=== PATIENT | male | born 2000 | race African-American/Black ===

== ENCOUNTER 2020-08-26 12:16 | Inpatient (IN) | payer MEDICAID ==
[~2020-08-26] VITALS: Ht 175.3 cm; Wt 69.9 kg
[2020-08-26] MEDS ORDERED: TUBERCULIN, PURIFIED PROTEIN DERIVATIVE 5 TU/0.1 ML SYRINGE ID ONE (15:15)
[2020-08-26] MEDS ORDERED: MAG HYDROX/AL HYDROX/SIMETH ES 30 ML SUSPENSION UDCUP PO PRN (15:15)
[2020-08-26] MEDS ORDERED: QUEtiapine FUMARATE 100 MG TABLET PO PRN (15:15)
[2020-08-26] MEDS ORDERED: PROMETHAZINE HCL 25 MG TABLET PO PRN (15:15)
[2020-08-26] MEDS ORDERED: ZOLPIDEM TARTRATE 10 MG TABLET PO PRN (15:15)
[2020-08-26] MEDS ORDERED: HydrOXYzine PAMOATE 50 MG CAPSULE PO PRN (15:15)
[2020-08-26] MEDS ORDERED: LOPERAMIDE HCL 2 MG CAPSULE PO PRN (15:15)
[2020-08-26] MEDS ORDERED: LORazepam 2 MG TABLET PO PRN (15:15)
[2020-08-26] MEDS ORDERED: GuaiFENesin/D-METHORPHAN [SUGAR-FREE] 200-20MG/10 ML SYRUP UDCUP PO PRN (15:15)
[2020-08-26] MEDS ORDERED: MAGNESIUM HYDROXIDE SUSPENSION 30 ML UDCUP PO PRN (15:15)
[2020-08-26] MEDS ORDERED: ACETAMINOPHEN 325 MG TABLET PO PRN (15:15)
[2020-08-26] MEDS ORDERED: FLUO20CA36 PO (16:13)
[2020-08-26] MEDS ORDERED: DOCU-275 PO (16:30)
[2020-08-26] MEDS ORDERED: PANT-31 PO (16:30)
[2020-08-26] MEDS ORDERED: BISA-151 PO (16:31)
[2020-08-26] MEDS ORDERED: ACET-2247 PO (16:31)
[2020-08-26] MEDS ORDERED: ALBU8HFA IH (16:31)
[2020-08-26] MEDS ORDERED: BISA10SU11 PR ×2 (16:32→16:33)
[2020-08-26] MEDS ORDERED: HYDR-4723 PO (16:34)
[2020-08-26] MEDS ORDERED: LORA-1001 PO (16:35)
[2020-08-26] MEDS ORDERED: MOM30 PO (16:36)
[2020-08-26] MEDS ORDERED: ZOLP-280 PO (16:36)
[2020-08-26 17:53] VITALS: BP 157/87
[2020-08-26] MEDS: THIAMINE 100 MG TABLET PO SCH (18:34)
[2020-08-26] MEDS ORDERED: OLANZapine 5 MG RAPDIS TABLET PO PRN (19:00)
[2020-08-26] MEDS: OLANZapine 5 MG RAPDIS TABLET PO SCH (20:30)
[2020-08-26] MEDS: MELATONIN 5 MG TABLET PO SCH (20:30)
[2020-08-27 04:17] LABS: APPEARANCE,URINE CLEAR (CLEAR); BILIRUBIN,URINE NEGATIVE (NEGATIVE); GLUCOSE, URINE (UA) NEGATIVE (NEGATIVE); KETONES,URINE NEGATIVE (NEGATIVE); LEUKOCYTE ESTERASE ,URINE NEGATIVE (NEGATIVE); NITRATE,URINE NEGATIVE (NEGATIVE); OCCULT BLOOD,URINE NEGATIVE (NEGATIVE); PROTEIN,URINE NEGATIVE (NEGATIVE); UROBILINOGEN,URINE 0.2 mg/dL (<=1.0)
[2020-08-27 04:22] LABS: AMPHET/METH SCREEN,URINE NEGATIVE (NEGATIVE); BARBITURATE SCREEN, URINE NEGATIVE (NEGATIVE); BENZODIAZEPINES SCREEN,URINE NEGATIVE (NEGATIVE); CANNABINOID SCREEN,URINE POSITIVE (NEGATIVE); COCAINE SCREEN,URINE NEGATIVE (NEGATIVE); METHADONE SCREEN, URINE NEGATIVE (NEGATIVE); OPIATE SCREEN,URINE NEGATIVE (NEGATIVE)
[2020-08-27 04:24] LABS: PHENCYCLIDINE SCREEN,URINE NEGATIVE (NEGATIVE)
[2020-08-27 08:46] VITALS: BP 129/81
[2020-08-27] MEDS: OMEGA-3/DHA/EPA/FISH OIL 1,000 MG CAPSULE PO SCH (09:00)
[2020-08-27] MEDS: FOLIC ACID 1 MG TABLET PO SCH (09:00)
[2020-08-27] MEDS: MULTIVITAMINS WITH MINERALS, THERAPEUTIC TABLET PO SCH (09:00)
[2020-08-27] MEDS: FLUoxetine HCL 20 MG CAPSULE PO SCH (09:00)
[2020-08-27] MEDS: THIAMINE 100 MG TABLET PO SCH ×2 (09:00→16:17)
[2020-08-27] MEDS: NALTREXONE HCL 50 MG TABLET PO SCH (09:00)
[2020-08-27] MEDS ORDERED: ALBUTEROL SULFATE HFA 90 MCG/PUFF 8 GM INHALER IH PRN (11:15)
[2020-08-27 16:04] VITALS: BP 124/74
[2020-08-27] MEDS: DOCUSATE SODIUM 100 MG CAPSULE PO SCH (16:17)
[2020-08-27] MEDS: OLANZapine 5 MG RAPDIS TABLET PO SCH (20:03)
[2020-08-27] MEDS: MELATONIN 5 MG TABLET PO SCH (20:03)
[2020-08-27] MEDS ORDERED: OLANZapine 10 MG RAPDIS TABLET PO SCH (21:00)
[2020-08-27] MEDS ORDERED: OLANZapine 5 MG RAPDIS TABLET PO ONE (21:00)
[2020-08-28 08:00] VITALS: BP 134/75
[2020-08-28] MEDS: DOCUSATE SODIUM 100 MG CAPSULE PO SCH ×2 (09:00→17:00)
[2020-08-28] MEDS: NALTREXONE HCL 50 MG TABLET PO SCH (09:00)
[2020-08-28] MEDS: THIAMINE 100 MG TABLET PO SCH ×2 (09:00→17:00)
[2020-08-28] MEDS: MULTIVITAMINS WITH MINERALS, THERAPEUTIC TABLET PO SCH (09:00)
[2020-08-28] MEDS: FLUoxetine HCL 20 MG CAPSULE PO SCH ×2 (09:00→20:37)
[2020-08-28] MEDS: PANTOPRAZOLE SODIUM 40 MG DR TABLET PO SCH (09:00)
[2020-08-28] MEDS: OMEGA-3/DHA/EPA/FISH OIL 1,000 MG CAPSULE PO SCH (09:00)
[2020-08-28] MEDS: FOLIC ACID 1 MG TABLET PO SCH (09:00)
[2020-08-28 16:37] VITALS: BP 151/77
[2020-08-28] MEDS: MELATONIN 5 MG TABLET PO SCH (20:37)
[2020-08-28] MEDS: OLANZapine 10 MG RAPDIS TABLET PO SCH (20:38)
[2020-08-29 08:16] VITALS: BP 122/70
[2020-08-29] MEDS: OMEGA-3/DHA/EPA/FISH OIL 1,000 MG CAPSULE PO SCH (09:00)
[2020-08-29] MEDS: NALTREXONE HCL 50 MG TABLET PO SCH (09:00)
[2020-08-29] MEDS: MULTIVITAMINS WITH MINERALS, THERAPEUTIC TABLET PO SCH (09:00)
[2020-08-29] MEDS: DOCUSATE SODIUM 100 MG CAPSULE PO SCH ×2 (09:00→16:30)
[2020-08-29] MEDS: FOLIC ACID 1 MG TABLET PO SCH (09:00)
[2020-08-29] MEDS: THIAMINE 100 MG TABLET PO SCH ×2 (09:00→16:30)
[2020-08-29] MEDS: PANTOPRAZOLE SODIUM 40 MG DR TABLET PO SCH (09:00)
[2020-08-29 16:29] VITALS: BP 142/66
[2020-08-29 20:00] VITALS: BP 135/68
[2020-08-29] MEDS: FLUoxetine HCL 20 MG CAPSULE PO SCH (20:51)
[2020-08-29] MEDS: OLANZapine 10 MG RAPDIS TABLET PO SCH (20:52)
[2020-08-29] MEDS: MELATONIN 5 MG TABLET PO SCH (20:52)
[2020-08-30 08:20] VITALS: BP 131/50
[2020-08-30 08:30] VITALS: BP 131/58
[2020-08-30] MEDS: PANTOPRAZOLE SODIUM 40 MG DR TABLET PO SCH (10:40)
[2020-08-30] MEDS: OMEGA-3/DHA/EPA/FISH OIL 1,000 MG CAPSULE PO SCH (10:40)
[2020-08-30] MEDS: MULTIVITAMINS WITH MINERALS, THERAPEUTIC TABLET PO SCH (10:40)
[2020-08-30] MEDS: NALTREXONE HCL 50 MG TABLET PO SCH (10:40)
[2020-08-30] MEDS: THIAMINE 100 MG TABLET PO SCH ×2 (10:40→16:27)
[2020-08-30] MEDS: FOLIC ACID 1 MG TABLET PO SCH (10:40)
[2020-08-30] MEDS: DOCUSATE SODIUM 100 MG CAPSULE PO SCH ×2 (10:44→16:27)
[2020-08-30 20:00] VITALS: BP 128/62
[2020-08-30] MEDS: OLANZapine 10 MG RAPDIS TABLET PO SCH (21:00)
[2020-08-30] MEDS: MELATONIN 5 MG TABLET PO SCH (21:00)
[2020-08-30] MEDS: FLUoxetine HCL 20 MG CAPSULE PO SCH (21:00)
[2020-08-31] MEDS: DOCUSATE SODIUM 100 MG CAPSULE PO SCH ×2 (08:26→16:24)
[2020-08-31] MEDS: OMEGA-3/DHA/EPA/FISH OIL 1,000 MG CAPSULE PO SCH (08:26)
[2020-08-31] MEDS: FOLIC ACID 1 MG TABLET PO SCH (08:26)
[2020-08-31] MEDS: NALTREXONE HCL 50 MG TABLET PO SCH (08:26)
[2020-08-31] MEDS: PANTOPRAZOLE SODIUM 40 MG DR TABLET PO SCH (08:26)
[2020-08-31] MEDS: THIAMINE 100 MG TABLET PO SCH ×2 (08:26→16:24)
[2020-08-31] MEDS: MULTIVITAMINS WITH MINERALS, THERAPEUTIC TABLET PO SCH (08:26)
[2020-08-31 08:57] VITALS: BP 146/75
[2020-08-31 16:27] VITALS: BP 139/75
[2020-08-31] MEDS: FLUoxetine HCL 20 MG CAPSULE PO SCH (20:41)
[2020-08-31] MEDS: MELATONIN 5 MG TABLET PO SCH (20:41)
[2020-08-31] MEDS: OLANZapine 10 MG RAPDIS TABLET PO SCH (20:42)
[2020-09-01 08:11] VITALS: BP 112/62
[2020-09-01] MEDS: OMEGA-3/DHA/EPA/FISH OIL 1,000 MG CAPSULE PO SCH (08:32)
[2020-09-01] MEDS: MULTIVITAMINS WITH MINERALS, THERAPEUTIC TABLET PO SCH (08:32)
[2020-09-01] MEDS: NALTREXONE HCL 50 MG TABLET PO SCH (08:32)
[2020-09-01] MEDS: PANTOPRAZOLE SODIUM 40 MG DR TABLET PO SCH (08:32)
[2020-09-01] MEDS: THIAMINE 100 MG TABLET PO SCH ×2 (08:32→17:02)
[2020-09-01] MEDS: DOCUSATE SODIUM 100 MG CAPSULE PO SCH ×2 (08:32→17:02)
[2020-09-01] MEDS: FOLIC ACID 1 MG TABLET PO SCH (08:32)
[2020-09-01 17:11] VITALS: BP 128/66
[2020-09-01] MEDS ORDERED: OLAN10TA26 PO (18:57)
[2020-09-01] MEDS ORDERED: OMEG-135 PO (18:57)
[2020-09-01] MEDS ORDERED: FLUO20CA36 PO (18:57)
[2020-09-01] MEDS ORDERED: NALT50TA PO (18:57)
[2020-09-01] MEDS ORDERED: MELA5TAB3 PO (18:57)
[2020-09-01] MEDS: FLUoxetine HCL 20 MG CAPSULE PO SCH (20:06)
[2020-09-01] MEDS: MELATONIN 5 MG TABLET PO SCH (20:06)
[2020-09-01] MEDS: OLANZapine 10 MG RAPDIS TABLET PO SCH (20:06)
[2020-09-02 08:00] VITALS: BP 129/74
[2020-09-02] MEDS: DOCUSATE SODIUM 100 MG CAPSULE PO SCH ×2 (09:14→16:15)
[2020-09-02] MEDS: OMEGA-3/DHA/EPA/FISH OIL 1,000 MG CAPSULE PO SCH (09:14)
[2020-09-02] MEDS: MULTIVITAMINS WITH MINERALS, THERAPEUTIC TABLET PO SCH (09:14)
[2020-09-02] MEDS: NALTREXONE HCL 50 MG TABLET PO SCH (09:14)
[2020-09-02] MEDS: THIAMINE 100 MG TABLET PO SCH ×2 (09:14→16:15)
[2020-09-02] MEDS: FOLIC ACID 1 MG TABLET PO SCH (09:14)
[2020-09-02] MEDS: PANTOPRAZOLE SODIUM 40 MG DR TABLET PO SCH (09:14)
[2020-09-02 16:00] VITALS: BP 126/60
[2020-09-02] MEDS: FLUoxetine HCL 20 MG CAPSULE PO SCH (20:18)
[2020-09-02] MEDS: MELATONIN 5 MG TABLET PO SCH (20:18)
[2020-09-02] MEDS: OLANZapine 10 MG RAPDIS TABLET PO SCH (20:19)
[2020-09-03 08:00] VITALS: BP 131/60
[2020-09-03] MEDS: MULTIVITAMINS WITH MINERALS, THERAPEUTIC TABLET PO SCH (08:36)
[2020-09-03] MEDS: DOCUSATE SODIUM 100 MG CAPSULE PO SCH ×2 (08:37→16:19)
[2020-09-03] MEDS: THIAMINE 100 MG TABLET PO SCH ×2 (08:37→16:19)
[2020-09-03] MEDS: NALTREXONE HCL 50 MG TABLET PO SCH (08:37)
[2020-09-03] MEDS: OMEGA-3/DHA/EPA/FISH OIL 1,000 MG CAPSULE PO SCH (08:37)
[2020-09-03] MEDS: PANTOPRAZOLE SODIUM 40 MG DR TABLET PO SCH (08:37)
[2020-09-03] MEDS: FOLIC ACID 1 MG TABLET PO SCH (08:38)
[2020-09-03 16:03] VITALS: BP 153/74
[2020-09-03 20:00] VITALS: BP 139/77
[2020-09-03] MEDS: OLANZapine 10 MG RAPDIS TABLET PO SCH (20:47)
[2020-09-03] MEDS: FLUoxetine HCL 20 MG CAPSULE PO SCH (20:47)
[2020-09-03] MEDS: MELATONIN 5 MG TABLET PO SCH (20:47)
[2020-09-04 08:00] VITALS: BP 109/71
[2020-09-04] MEDS: NALTREXONE HCL 50 MG TABLET PO SCH (08:22)
[2020-09-04] MEDS: THIAMINE 100 MG TABLET PO SCH ×2 (08:22→17:01)
[2020-09-04] MEDS: FOLIC ACID 1 MG TABLET PO SCH (08:22)
[2020-09-04] MEDS: MULTIVITAMINS WITH MINERALS, THERAPEUTIC TABLET PO SCH (08:22)
[2020-09-04] MEDS: DOCUSATE SODIUM 100 MG CAPSULE PO SCH ×2 (08:22→17:01)
[2020-09-04] MEDS: PANTOPRAZOLE SODIUM 40 MG DR TABLET PO SCH (08:23)
[2020-09-04] MEDS: OMEGA-3/DHA/EPA/FISH OIL 1,000 MG CAPSULE PO SCH (08:23)
[2020-09-04 16:21] VITALS: BP 120/81
[2020-09-04] MEDS: MELATONIN 5 MG TABLET PO SCH (20:47)
[2020-09-04] MEDS: FLUoxetine HCL 20 MG CAPSULE PO SCH (20:47)
[2020-09-04] MEDS: OLANZapine 10 MG RAPDIS TABLET PO SCH (20:47)
[2020-09-05 08:50] VITALS: BP 123/73
[2020-09-05] MEDS: DOCUSATE SODIUM 100 MG CAPSULE PO SCH ×2 (09:15→16:15)
[2020-09-05] MEDS: OMEGA-3/DHA/EPA/FISH OIL 1,000 MG CAPSULE PO SCH (09:15)
[2020-09-05] MEDS: NALTREXONE HCL 50 MG TABLET PO SCH (09:16)
[2020-09-05] MEDS: THIAMINE 100 MG TABLET PO SCH (09:16)
[2020-09-05] MEDS: FOLIC ACID 1 MG TABLET PO SCH (09:16)
[2020-09-05] MEDS: PANTOPRAZOLE SODIUM 40 MG DR TABLET PO SCH (09:16)
[2020-09-05] MEDS: MULTIVITAMINS WITH MINERALS, THERAPEUTIC TABLET PO SCH (09:16)
[2020-09-05] MEDS: MELATONIN 5 MG TABLET PO SCH (20:03)
[2020-09-05] MEDS: OLANZapine 10 MG RAPDIS TABLET PO SCH (20:03)
[2020-09-05] MEDS: FLUoxetine HCL 20 MG CAPSULE PO SCH (20:03)
[2020-09-06] MEDS: NALTREXONE HCL 50 MG TABLET PO SCH (09:24)
[2020-09-06] MEDS: MULTIVITAMINS WITH MINERALS, THERAPEUTIC TABLET PO SCH (09:25)
[2020-09-06] MEDS: PANTOPRAZOLE SODIUM 40 MG DR TABLET PO SCH (09:25)
[2020-09-06] MEDS: OMEGA-3/DHA/EPA/FISH OIL 1,000 MG CAPSULE PO SCH (09:25)
[2020-09-06] MEDS: DOCUSATE SODIUM 100 MG CAPSULE PO SCH ×2 (10:00→16:02)
[2020-09-06 16:00] VITALS: BP 129/76
[2020-09-06] MEDS: MELATONIN 5 MG TABLET PO SCH (20:08)
[2020-09-06] MEDS: FLUoxetine HCL 20 MG CAPSULE PO SCH (20:08)
[2020-09-06] MEDS: OLANZapine 10 MG RAPDIS TABLET PO SCH (20:08)
[2020-09-07 09:09] VITALS: BP 145/81
[2020-09-07] MEDS: MULTIVITAMINS WITH MINERALS, THERAPEUTIC TABLET PO SCH (09:40)
[2020-09-07] MEDS: NALTREXONE HCL 50 MG TABLET PO SCH (09:40)
[2020-09-07] MEDS: PANTOPRAZOLE SODIUM 40 MG DR TABLET PO SCH (09:40)
[2020-09-07] MEDS: DOCUSATE SODIUM 100 MG CAPSULE PO SCH ×2 (09:40→16:24)
[2020-09-07] MEDS: OMEGA-3/DHA/EPA/FISH OIL 1,000 MG CAPSULE PO SCH (09:40)
[2020-09-07 16:18] VITALS: BP 146/78
[2020-09-07] MEDS: MELATONIN 5 MG TABLET PO SCH (20:18)
[2020-09-07] MEDS: FLUoxetine HCL 20 MG CAPSULE PO SCH (20:18)
[2020-09-07] MEDS: OLANZapine 10 MG RAPDIS TABLET PO SCH (20:18)
[2020-09-08 09:14] VITALS: BP 109/54
[2020-09-08] MEDS: NALTREXONE HCL 50 MG TABLET PO SCH (09:34)
[2020-09-08] MEDS: OMEGA-3/DHA/EPA/FISH OIL 1,000 MG CAPSULE PO SCH (09:34)
[2020-09-08] MEDS: DOCUSATE SODIUM 100 MG CAPSULE PO SCH ×2 (09:34→16:13)
[2020-09-08] MEDS: MULTIVITAMINS WITH MINERALS, THERAPEUTIC TABLET PO SCH (09:34)
[2020-09-08] MEDS: PANTOPRAZOLE SODIUM 40 MG DR TABLET PO SCH (09:34)
[2020-09-08 16:34] VITALS: BP 124/55
[2020-09-08] MEDS: FLUoxetine HCL 20 MG CAPSULE PO SCH (20:12)
[2020-09-08] MEDS: MELATONIN 5 MG TABLET PO SCH (20:12)
[2020-09-08] MEDS: OLANZapine 10 MG RAPDIS TABLET PO SCH (20:13)
[2020-09-09] MEDS: DOCUSATE SODIUM 100 MG CAPSULE PO SCH ×2 (08:59→17:12)
[2020-09-09] MEDS: OMEGA-3/DHA/EPA/FISH OIL 1,000 MG CAPSULE PO SCH (09:00)
[2020-09-09] MEDS: MULTIVITAMINS WITH MINERALS, THERAPEUTIC TABLET PO SCH (09:01)
[2020-09-09] MEDS: NALTREXONE HCL 50 MG TABLET PO SCH (09:01)
[2020-09-09] MEDS: PANTOPRAZOLE SODIUM 40 MG DR TABLET PO SCH (09:02)
[2020-09-09 16:00] VITALS: BP 124/70
[2020-09-09] MEDS: OLANZapine 10 MG RAPDIS TABLET PO SCH (20:07)
[2020-09-09] MEDS: MELATONIN 5 MG TABLET PO SCH (20:07)
[2020-09-09] MEDS: FLUoxetine HCL 20 MG CAPSULE PO SCH (20:07)
[2020-09-10 08:34] VITALS: BP 115/80
[2020-09-10] MEDS: OMEGA-3/DHA/EPA/FISH OIL 1,000 MG CAPSULE PO SCH (09:42)
[2020-09-10] MEDS: NALTREXONE HCL 50 MG TABLET PO SCH (09:42)
[2020-09-10] MEDS: PANTOPRAZOLE SODIUM 40 MG DR TABLET PO SCH (09:42)
[2020-09-10] MEDS: MULTIVITAMINS WITH MINERALS, THERAPEUTIC TABLET PO SCH (09:42)
[2020-09-10] MEDS: DOCUSATE SODIUM 100 MG CAPSULE PO SCH ×2 (09:42→16:34)
[2020-09-10 16:00] VITALS: BP 132/71
[2020-09-10] MEDS: FLUoxetine HCL 20 MG CAPSULE PO SCH (20:09)
[2020-09-10] MEDS: OLANZapine 10 MG RAPDIS TABLET PO SCH (20:09)
[2020-09-10] MEDS: MELATONIN 5 MG TABLET PO SCH (20:09)
[2020-09-11 08:54] VITALS: BP 122/75
[2020-09-11] MEDS: NALTREXONE HCL 50 MG TABLET PO SCH (09:57)
[2020-09-11] MEDS: PANTOPRAZOLE SODIUM 40 MG DR TABLET PO SCH (09:57)
[2020-09-11] MEDS: OMEGA-3/DHA/EPA/FISH OIL 1,000 MG CAPSULE PO SCH (09:57)
[2020-09-11] MEDS: MULTIVITAMINS WITH MINERALS, THERAPEUTIC TABLET PO SCH (09:57)
[2020-09-11] MEDS: DOCUSATE SODIUM 100 MG CAPSULE PO SCH ×2 (09:57→16:04)
[2020-09-11 16:05] VITALS: BP 143/78
[2020-09-11] MEDS: MELATONIN 5 MG TABLET PO SCH (20:04)
[2020-09-11] MEDS: OLANZapine 10 MG RAPDIS TABLET PO SCH (20:04)
[2020-09-11] MEDS: FLUoxetine HCL 20 MG CAPSULE PO SCH (20:04)
[2020-09-12 09:08] VITALS: BP 113/65
[2020-09-12] MEDS: NALTREXONE HCL 50 MG TABLET PO SCH (10:04)
[2020-09-12] MEDS: OMEGA-3/DHA/EPA/FISH OIL 1,000 MG CAPSULE PO SCH (10:04)
[2020-09-12] MEDS: MULTIVITAMINS WITH MINERALS, THERAPEUTIC TABLET PO SCH (10:04)
[2020-09-12] MEDS: PANTOPRAZOLE SODIUM 40 MG DR TABLET PO SCH (10:06)
[2020-09-12] MEDS: DOCUSATE SODIUM 100 MG CAPSULE PO SCH ×2 (10:06→17:55)
[2020-09-12 14:22] LABS: COVID AG,FIA SOURCE NASOPHARYNGEAL
[2020-09-12 16:26] VITALS: BP 135/76
[2020-09-12] MEDS: OLANZapine 10 MG RAPDIS TABLET PO SCH (21:13)
[2020-09-12] MEDS: FLUoxetine HCL 20 MG CAPSULE PO SCH (21:13)
[2020-09-12] MEDS: MELATONIN 5 MG TABLET PO SCH (21:13)
[2020-09-13 08:15] VITALS: BP 136/73
[2020-09-13] MEDS ORDERED: MULT-1239 PO (08:16)
[2020-09-13] MEDS: DOCUSATE SODIUM 100 MG CAPSULE PO SCH (08:32)
[2020-09-13] MEDS: MULTIVITAMINS WITH MINERALS, THERAPEUTIC TABLET PO SCH (08:32)
[2020-09-13] MEDS: OMEGA-3/DHA/EPA/FISH OIL 1,000 MG CAPSULE PO SCH (08:32)
[2020-09-13] MEDS: PANTOPRAZOLE SODIUM 40 MG DR TABLET PO SCH (08:32)
[2020-09-13] MEDS: NALTREXONE HCL 50 MG TABLET PO SCH (08:32)
== END 2020-09-13 09:40 | disposition home or self-care (01) | DRG 750 ==
LOC: 3EI 16:20
PROVIDERS: ADMIT Psychiatry & Neurology Psychiatry; ATTEND Psychiatry & Neurology Psychiatry
DX: F25.1 Schizoaffective disorder, depressive type (principal); R45.851 Suicidal ideations; F12.20 Cannabis dependence, uncomplicated; K21.9 Gastro-esophageal reflux disease without esophagitis; F17.200 Nicotine dependence, unspecified, uncomplicated; Z20.822 Contact with and (suspected) exposure to COVID-19; J45.909 Unspecified asthma, uncomplicated; K59.00 Constipation, unspecified; Z79.899 Other long term (current) drug therapy; Z91.5 Personal history of self-harm
CPT/HCPCS: 80307; 81003; A9575